=== PATIENT | male | born 2000 | race Hispanic/Latino ===

== ENCOUNTER 2021-03-13 09:28 | Emergency (ER) | payer OTHER, SELFPAY ==
--- NOTE | ~2021-03-13 | XR_ITS ---
EXAMINATION: XR ankle RT min 3V EXAM DATE: 03/13/2021 10:10 INDICATION: Right ankle pain, injury yesterday. TECHNIQUE: Right ankle frontal, lateral and oblique projections obtained and reviewed. There is no p rior study for comparison. FINDINGS: The right ankle mortise appears intact. There are no acute fractures or dislocations iden tified. There is no subcutaneous gas. The soft tissue is unremarkable. There are no radiopaque fo reign bodies. IMPRESSION: 1. Right ankle exam without acute osseous findings. Reviewed, dictated and finalized at location B.
[2021-03-13 09:56] VITALS: BP 121/68; PULSE 63; RESP 16; TEMP 36.3; O2SAT 99
--- NOTE | 2021-03-13 11:00 | ED.LOWEXIN ---
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 in some mild patient's foot got stuck he dropped a concrete and on his ankle and it is painful for him to walk or apply any pressure Related Data Allergies Allergy/AdvReac Type Severity Reaction Status Date / Time No Known Allergies Allergy Verified 01/01/21 10:55 Review of Systems Review of Systems: extremity: right ankle pain and edema with slight erythema and abrasion All systems reviewed & are unremarkable except as noted in HPI and below PMFSH Past Medical History Medical History BMI 29.0-29.9,adult HLD (hyperlipidemia) Marijuana use, episodic Tobacco abuse Family History Family History Mother Patient's mother is in good health Father Patient's father is in good health Sibling Patient's sister is in good health Social History Social History (Updated 01/01/21 @ 10:58 by Josefina Reza [facility]) Smoking packs per day: 1 Smoking cigarettes per day: 20.0 Years smoked: 6 Smoking pack-years: 6.00 Smoking status: Current some day smoker Tobacco type: cigarettes and e-cigarettes/vaping Second hand tobacco smoke exposure: No Alcohol intake: current Drinks per week: 12 Substance use: current Substance use type: marijuana Other substance usage details: recreational; infrequent Comments At time as signature, I have reviewed and agree with nursing past medical, social, surgical and family history. Please see nursing chart for further information. There is no relevant family history pertinent to the presenting complaint. Exam Narrative: GENERAL:Well-appearing, well-nourished, and in no acute distress. HEAD:Normocephalic, atraumatic. EYES: PERRLA and EOMI. ENT: Nares clear, no rhinorrhea or epistaxis. Mucous membranes moist. NECK: Supple. CHEST: Clear to auscultation. No respiratory distress. HEART: Regular rate and rhythm. ABDOMEN: Soft, nontender, nondistended, normal active bowel sounds. EXTREMITIES: Decreased range of motion due to pain. Right ankle edema. SKIN: Warm, dry, no rash. NEURO: No focal deficits. Alert and oriented x3. Course [employer]/PA Physician Supervision Patient ankle x-ray negative [place] wrap to be given Vital Signs Vital signs: Vital Signs Temperature 97.4 F L 03/13/21 09:56 Pulse Rate 63 03/13/21 09:56 Respiratory Rate 16 03/13/21 09:56 Blood Pressure 121/68 03/13/21 09:56 Pulse Oximetry 99 03/13/21 09:56 Temperature 97.4 F L 03/13/21 09:56 Pulse Rate 63 03/13/21 09:56 Respiratory Rate 16 03/13/21 09:56 Blood Pressure 121/68 03/13/21 09:56 Pulse Oximetry 99 03/13/21 09:56 MDM - Extremity Injury (Lower) Differential Diagnosis Differential diagnosis: Likely ankle sprain and strain, fracture of femur, fracture of hip, fracture of toe and ankle fracture Discharge Plan Discharge Clinical Impression: Ankle sprain and strain Patient Disposition: Home, Self-Care Condition: Stable Instructions: Antibiotic Form, Ankle Sprain (ED) Additional Instructions: Avoid weight bearing until the pain subsides. Ice to the area 20-30 minutes 4-6 times a day Elevate above heart Elastic wrap or orthopedic splint as directed for comfort for the next 5-7 days Crutches as directed if needed Tylenol for lesser pain Ibuprofen regularly for the next 2-3 days for the inflammation Follow up with your primary care provider if the condition is not improving within 1 week or sooner if the condition worsens with numbness, tingling, decrease sensation with weakness to seek ER. Prescriptions: New ibuprofen 600 mg tablet 600 mg P
== END 2021-03-13 11:37 | disposition home or self-care (01) ==
PROVIDERS: Emergency Provider Nurse Practitioner Family; PCP Family Medicine
DX: S93.401A Sprain of unspecified ligament of right ankle, initial encounter (principal); E78.5 Hyperlipidemia, unspecified; F17.210 Nicotine dependence, cigarettes, uncomplicated; W22.8XXA Striking against or struck by other objects, initial encounter; Y99.0 Civilian activity done for income or pay
CPT/HCPCS: 73610; 99213; G0463

== ENCOUNTER 2022-01-27 08:03 | Emergency (ER) | payer OTHER, SELFPAY ==
--- NOTE | 2022-01-27 08:11 | ED.GENADULT ---
HPI - General Adult General Chief complaint: Ear Stated complaint: Left Ear Pain Source: patient, RN notes reviewed and old records reviewed Mode of arrival: ambulatory Limitations: no limitations History of Present Illness HPI narrative: 21 year old male resents to express care with complaints of left ear pain for the past 2 days. Patient reports that he tried to clean his ear out with a Q-Tip and he used a wax treatment and water flush to his left ear with no improvement in his hearing and continued pain to his left ear. Patient denies any fevers, chills or sweats, denies any body aches or cough, he states that he has had COVID vaccinations but no Booster, no flu shot. MD complaint: ear pain left Onset (ago): day(s) (2) Severity scale (1-10): 4 Related Data Allergies Allergy/AdvReac Type Severity Reaction Status Date / Time No Known Allergies Allergy Verified 01/27/22 08:11 Review of Systems Review of Systems: CONSTITUTIONAL: Denies fever, chills, or sweats. EYES: Denies visual changes, redness, or discharge. ENT: Denies rhinorrhea, congestion, sore throat, positive for left ear otalgia. CARDIOVASCULAR: Denies chest pain, palpitations, or edema. RESPIRATORY: Denies cough or dyspnea. GASTROINTESTINAL: Denies abdominal pain, nausea, vomiting, or diarrhea. GENITOURINARY: Denies dysuria or hematuria. SKIN: Denies rash or itching. MUSCULOSKELETAL: Denies back pain, joint pain, or myalgia. NEUROLOGIC: Denies headache, numbness, or weakness. PSYCHIATRIC: Positive for anxiety or depression. All systems reviewed & are unremarkable except as noted in HPI and below PMFSH Past Medical History Medical History (Updated 01/27/22 @ 21:34 by Leti Robles NP) Anxiety BMI 29.0-29.9,adult GERD (gastroesophageal reflux disease) HLD (hyperlipidemia) Marijuana use, episodic Tobacco abuse Surgical History Surgical History (Updated 01/27/22 @ 09:45 by Leti Robles NP) [place] teeth extracted Family History Family History Mother Patient's mother is in good health Father Patient's father is in good health Sibling Patient's sister is in good health Social History Social History (Updated 01/27/22 @ 21:35 by Leti Robles NP) Smoking packs per day: 1 Smoking cigarettes per day: 20.0 Years smoked: 6 Smoking pack-years: 6.00 Tobacco type: cigarettes and e-cigarettes/vaping Second hand tobacco smoke exposure: No Additional smoking assessment comments: states that he vapes mainly, smokes cigarettes sometimes but not routinely Alcohol intake: current Drinks per week: 12 Substance use: current Substance use type: marijuana Other substance usage details: recreational Living arrangements: with family Gender identity (if verbalized by the patient): Male Comments At time of signature, agree with nursing past medical, surgical, social and family history. There is no relevant family history pertinent to the presenting complaint Exam Narrative: GENERAL: Well-appearing, well-nourished, and in no acute distress. HEAD: Normocephalic, atraumatic. EYES: PERRLA and EOMI. ENT: Nares clear, no rhinorrhea or epistaxis. Mucous membranes moist.left TM with wax and ear canal red, after ear flushing and curetted TM normal and ear canal remains red and excoriated Right TM normal with good light reflex, throat pink with no lymphadenopathy CHEST: Clear to auscultation. No respiratory distress.SAO2 98% on room air, no tachypnea or dyspnea noted. HEART: Regular rate and rhythm. No murmur heard. Normal peripheral pulses., ABDOMEN: Soft, nontender, nondistended, normal active bowel sounds. EXTREMITIES: Normal range of motion. No edema. SKIN: Warm, dry, no rash. NEURO: No focal deficits. Alert and oriented x3. Course Course Level of Care: Express Care Visit Vital Signs Vital signs: Vital Signs Temperature 36.4 C 01/27/22 08:14 Pulse Rate 78 0
[2022-01-27 08:14] VITALS: BP 121/70; PULSE 78; RESP 18; TEMP 36.4; O2SAT 98
== END 2022-01-27 08:46 | disposition home or self-care (01) ==
PROVIDERS: Emergency Provider Registered Nurse; PCP Family Medicine
DX: H61.22 Impacted cerumen, left ear (principal); H60.312 Diffuse otitis externa, left ear; F17.290 Nicotine dependence, other tobacco product, uncomplicated; F17.210 Nicotine dependence, cigarettes, uncomplicated; K21.9 Gastro-esophageal reflux disease without esophagitis; E78.5 Hyperlipidemia, unspecified; F41.9 Anxiety disorder, unspecified
CPT/HCPCS: 69210; 99213; G0463